=== PATIENT | female | born 1940 | race Hispanic/Latino ===

== ENCOUNTER 2019-12-16 09:00 | Outpatient (CLI) | payer MEDICARE ==
[2019-12-16] MEDS ORDERED: SODIUM CHLORIDE 0.45% 1000 ML 1,000 ML IV SCH (10:00)
[2019-12-16] MEDS ORDERED: SODIUM CHLORIDE IRRI 1000 ML 1 ML, .VANCOMYCIN VIAL 1,000 MG IR ONE (10:00)
[2019-12-16 10:58] LABS: Basophils % (Auto) TNR % (0.0-1.8); Eosinophils % (Auto) TNR % (0.0-4.3); Hematocrit TNR % (30.3-42.9); Hemoglobin TNR gm/dl (10.1-14.3); Lymphocytes % (Auto) TNR % (13.4-35.0); Mean Corpuscular HGB Conc TNR % (30-34); Mean Corpuscular Volume TNR fl (79-97); Monocytes % (Auto) TNR % (0.0-7.3); Platelet Count TNR K/mm3 (140-440); Red Blood Count TNR M/mm3 (3.65-5.03); Red Cell Distribution Width TNR % (13.2-15.2)
[2019-12-16 10:59] LABS: Basophils # (Auto) TNR K/mm3 (0.0-0.1); Eosinophils # (Auto) TNR K/mm3 (0.0-0.4); Lymphocytes # (Auto) TNR K/mm3 (1.2-5.4); Monocytes # (Auto) TNR K/mm3 (0.0-0.8)
[2019-12-16] MEDS ORDERED: ATROPINE 0.1% (1 MG/10 ML) CARDIAC SYRINGE ONE (12:48)
== END 2019-12-16 23:59 | disposition home or self-care (01) ==
LOC: CARD 09:00
PROVIDERS: ATTEND Internal Medicine Cardiovascular Disease
DX: R55 Syncope and collapse (principal); Z95.0 Presence of cardiac pacemaker
CPT/HCPCS: 36415; 85025; J3370; J7030; J0461

== ENCOUNTER 2019-12-16 09:33 | Observation (INO) | payer MEDICARE ==
[2019-12-16] MEDS ORDERED: SODIUM CHLORIDE 0.45% 1000 ML 1,000 ML IV ONE (10:02)
[2019-12-16] MEDS ORDERED: SODIUM CHLORIDE IRRI 1000 ML 1,000 ML, .VANCOMYCIN VIAL 1,000 MG IR ONE (10:22)
[2019-12-16 10:55] LABS: INR 1.03 (0.87-1.13)
[2019-12-16] MEDS ORDERED: LIDOCAINE (1%) 10 MG/1 ML VIAL 20 ML MDV ONE (10:58)
[2019-12-16] MEDS ORDERED: BUPIVACAINE/PF (0.5%) 5 MG/1 ML 30 ML VIAL INFILTRATI ONE (10:58)
[2019-12-16] MEDS ORDERED: ceFAZolin/Water 2 GM/20 ML 2 GM/20 ML SYRINGE IV ONE (10:59)
[2019-12-16 11:00] LABS: Basophils % (Auto) 0.6 % (0.0-1.8); Eosinophils # (Auto) 0.2 K/mm3 (0.0-0.4); Eosinophils % (Auto) 2.1 % (0.0-4.3); Hematocrit 35.1 % (30.3-42.9); Hemoglobin 11.5 gm/dl (10.1-14.3); Lymphocytes # (Auto) 1.6 K/mm3 (1.2-5.4); Lymphocytes % (Auto) 21.4 % (13.4-35.0); Mean Corpuscular HGB Conc 33 % (30-34); Mean Corpuscular Volume 91 fl (79-97); Monocytes # (Auto) 0.7 K/mm3 (0.0-0.8); Platelet Count 184 K/mm3 (140-440); Red Blood Count 3.88 M/mm3 (3.65-5.03); Red Cell Distribution Width 14.3 % (13.2-15.2)
[2019-12-16] MEDS ORDERED: SODIUM CHLORIDE 0.45% 1000 ML 1,000 ML IV SCH (11:00)
[2019-12-16 11:02] LABS: Partial Thromboplastin Time 25.2 Sec. (24.2-36.6)
[2019-12-16] MEDS ORDERED: SODIUM CHLORIDE 0.9% 250ML 250 ML ONE (11:34)
[2019-12-16] MEDS ORDERED: diphenhydrAMINE 50 MG/ML VIAL ONE (11:48)
[2019-12-16] MEDS: fentaNYL 100 MCG/2 ML INJ ONE ×3 (11:50→12:24)
[2019-12-16] MEDS: MIDAZOLAM 2 MG/2 ML INJ ONE ×2 (11:50→12:07)
[2019-12-16] MEDS ORDERED: SODIUM CHLORIDE IRRI 500 ML 500 ML IR ONE (12:12)
[2019-12-16] MEDS: METOPROLOL TARTRATE 5 MG/5 ML INJ IV ONE ×4 (12:19→12:45)
[2019-12-16] MEDS ORDERED: fentaNYL 100 MCG/2 ML INJ ONE (12:22)
[2019-12-16] MEDS ORDERED: MIDAZOLAM 2 MG/2 ML INJ ONE ×2 (12:22→13:03)
[2019-12-16] MEDS ORDERED: .VANCOMYCIN VIAL 1,000 MG in SODIUM CHLORIDE IRRI 1000 ML 1,000 ML IRRIGATION ONE (13:11)
[2019-12-16] MEDS: ACETAMINOPHEN 325 MG TAB PO PRN (16:26)
[2019-12-17] MEDS: ACETAMINOPHEN 325 MG TAB PO PRN (09:40)
--- NOTE | 2019-12-17 10:32 | Short Stay Summary ---
Short Stay Documentation Date of service: 12/17/19 - History H&P: obtained from office - Allergies and Medications Current Medications: Allergies codeine Adverse Reaction (Verified 12/16/19 11:44) Unknown Home Medications Medication Instructions Recorded Confirmed Last Taken Type Gabapentin [Neurontin] 300 mg PO QHS 12/16/19 12/16/19 12/15/19 History Glimepiride [Amaryl] 4 mg PO QAM 12/16/19 12/16/19 12/15/19 History Lanreotide Acetate [Somatuline 60 mg SQ QMONTH 12/16/19 12/16/19 12/15/19 History Depot] Levothyroxine [Synthroid] 50 mcg PO QAM 12/16/19 12/16/19 12/15/19 History Metformin HCl [metFORMIN] 1,000 mg PO BID 12/16/19 12/16/19 12/15/19 History Potassium Chloride [K-Dur] 10 meq PO QDAY 12/16/19 12/16/19 12/15/19 History Sitagliptin Phosphate [Januvia] 100 mg PO DAILY 12/16/19 12/16/19 12/15/19 History hydroCHLOROthiazide [HCTZ] 25 mg PO QDAY 12/16/19 12/16/19 12/15/19 History Active Medications Acetaminophen (Tylenol) 650 mg PO Q6H PRN PRN Reason: Pain, Mild (1-3) Last Admin: 12/17/19 09:40 Dose: 650 mg Documented by: Sodium Chloride (Nacl 0.45% 1000 Ml) 1,000 mls @ 50 mls/hr IV DIRECT ALYSIA Last Admin: 12/16/19 11:50 Dose: 200 mls Documented by: - Physical exam General appearance: no acute distress Integumentary: no rash, no growths, no abnormal pigmentation, other (left pectoralis PPM implantation site pressure dressing removed, site c/d/i covered with telfa and tegaderm dressing, site c/d/i with no bleeding or hematoma) HEENT: Atraumatic, PERRLA, EOMI Lungs: Clear to auscultation Heart: Regular rate, Normal S1, Normal S2 Gastrointestinal: normal, normoactive bowel sounds Extremities: no ischemia, pulses intact, pulses symmetrical Neurological: Normal gait, Normal speech, Strength at 5/5 X4 ext - Brief post op/procedure progress note Date of procedure: 12/16/19 Pre-op diagnosis: SSS Post-op diagnosis: same Procedure: PPM implantation - see operative report Estimated blood loss: none Condition: stable - Hospital course Hospital course: Pt presented for scheduled elective PPM implantation. She subsequently underwent PPM implantation yesterday and was admitted for observation overnight. She has remained clinically and hemodynamically stable throughout admission and is medically stable for discharge today. Post-op CXR with NAF, no pneumothorax. PPM interrogation this AM showed normal device function. - Disposition Condition at discharge: Good Disposition: DC-[id number] TO HOME OR SELFCARE - Discharge Diagnoses (1) Sick sinus syndrome Status: Chronic (2) Cardiac pacemaker in situ Status: Chronic (3) HTN (hypertension) Status: Chronic (4) Diabetes Status: Chronic (5) History of renal cell carcinoma Status: Chronic Short Stay Discharge Plan Activity: other (as per discharge instructions) Diet: low fat, low cholesterol, low salt Wound: open to air, keep clean and dry, per your surgeon's advice Follow up with: ALYSHA GARDNER MD [Staff Physician] - 7 Days ([place] [facility], post-op f/u, 12/27/2019 @ 10:30AM) SHARLENE ESPAÑA MD [Primary Care Provider] - 7 Days SHWETHA GREEN MD [Staff Physician] - 7 Days ([place] office, 12/30/2019 @ 11:30AM)
--- NOTE | 2019-12-17 11:21 | XRay Report ---
CHEST 1 VIEW INDICATION / CLINICAL INFORMATION: post PPM. COMPARISON: None available. FINDINGS: SUPPORT DEVICES: Left-sided pacemaker, right-sided central venous catheter HEART / MEDIASTINUM: No significant abnormality. LUNGS / PLEURA: No significant pulmonary or pleural abnormality. No pneumothorax. ADDITIONAL FINDINGS: No significant additional findings. IMPRESSION: Left-sided pacemaker is present with the lead superimposed over the expected position of the right at rium and right ventricle. No evidence of a left-sided pneumothorax. A right central venous catheter i s present with the tip superimposed over the expected position of the right atrium. No evidence of a right-sided pneumothorax. Signer Name: Modesto Granda MD FACR Signed: 12/17/2019 11:16 AM Workstation Name: [id number]
[2019-12-17 15:53] VITALS: BP 130/57
== END 2019-12-17 16:55 | disposition home or self-care (01) ==
LOC: CATHLABREC 09:33 → 4A 13:57
PROVIDERS: ADMIT Internal Medicine Cardiovascular Disease; ATTEND Internal Medicine Cardiovascular Disease
DX: I49.5 Sick sinus syndrome (principal); I10 Essential (primary) hypertension; E11.9 Type 2 diabetes mellitus without complications; Z95.0 Presence of cardiac pacemaker; Z85.53 Personal history of malignant neoplasm of renal pelvis; Z79.84 Long term (current) use of oral hypoglycemic drugs; Z79.899 Other long term (current) drug therapy
CPT/HCPCS: 33208; 36415; 71045; 80048; 85025; 85610; 85730; 93005; C1785; C1892; C1898; G0378; J0690; J1200; J2250; J3010; J3370; J7030; J7050; Q9967